=== PATIENT | female | born 1980 | race Caucasian/White ===

== ENCOUNTER 2016-03-21 12:49 | Emergency (ER) | payer MEDICAID ==
--- NOTE | 2016-03-21 13:46 | EDDOCDS ---
Nurse's Notes [facility] Name: Grace Toscano Age: 35 yrs Sex: Female : 1980 Arrival Date: 03/21/2016 Time: 12:49 Bed TR8 Private MD: Jaleesa Cisneros Diagnosis: Aspiration of fluid as the cause of abnormal reaction of the patient, or of later complication, without mention of misadventure at the time of the procedure Presentation: 03/21 12:55 Presenting complaint: Mother states: choked at DPAO on a drink. they did heimlich srm maneuver and didn't breath for a few secs. but now back to normal. Presenting complaint: Mother states: pt is mentally handicapped. Adult Sepsis Screening: The patient does not have new or worsening altered mentation. Patient's respiratory rate is less than 22. Systolic blood pressure is greater than 100. Patient has a qSOFA score of 0- Negative Sepsis Screen. Suicide/Homicide risk assessment- the patient denies having any suicidal and/or homicidal ideations and does not present with any other emotional, behavioral or mental health complaints. Status: Patient is not a service station helper or dependent. Transition of care: patient was not received from another setting of care. 12:55 Acuity: TRPIP Level 3 [facility] [place] 12:55 Method Of Arrival: Walkin/Carried/Asstd [facility] [place] 12:57 Presenting complaint: Mother states: sent here for xray to make sure everything is ok. [facility] [place] Triage Assessment: 12:57 General: Appears in no apparent distress, Behavior is restless. Pain: Unable to use srm pain scale. FLACC scale score is 0 out of 10. HIV screening NA for this visit Offered previously. 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 Valproic Acid 6ml Oral 2 times per day - PMHx: Seizure Disorder; mentally handicapped; legally blind; - PSHx: Cataract Surgery; - Social history: Smoking status: Patient states was never smoker of tobacco. Patient is visually impaired, non verbal. - Family history: Not pertinent. - : The pt / caregiver states he / she is not on anticoagulants. Home medication list is obtained from family members. - Exposure Risk Screening:: None identified. Screenin:42 Screening information is obtained from the patient. Fall risk: No risks identified. cjh Assistance ADL's: requires no assistance with activities of daily living. Abuse/DV Screen: The patient / caregiver reports he/she is: not in a situation that causes fear, pain or injury. Nutritional screening: No deficits noted. Advance Directives: There is no active DNR order. home support is adequate. Assessment: 13:42 General: Appears in no apparent distress, comfortable, Behavior is cooperative, first [facility] contact with patient, mother at bedside and caretaking, denies further needs. Reviewed discharge instructions with mother, encouraged and answered questions, declines offer of further assistance. Vital Signs: 12:51 Pulse 91; Resp 16; Temp 96.9(T); Pulse Ox 100% on R/A; Weight 38.1 kg; Height 4 ft. 8 sew in. (142.24 cm); 13:42 BP 107 / 63; cjh 12:51 Body Mass Index 18.83 (38.10 kg, 142.24 cm) sew 12:51 UNABLE TO OBTAIN A B/P [facility] Vitals: 12:51 Log In Time: March 21, 2016 at 12:50. sew ED Course: 12:50 Patient visited by Priya Julian. sew 12:50 Jaleesa Cisneros is Private Physician. sew 12:50 Patient moved to Waiting sew 12:54 Patient visited by Priya Julian. sew 12:54 Patient visited by Priya Julian. sew 12:54 Patient moved to Pre RCE sew 12:56 Triage Initiated srm 12:58 Patient moved to Triage 3 srm 13:12 [facility] btw 13:13 Nikko Chávez MD is Attending Physician. btw 13:13 Patient visited by Piyush Card PA. btw 13:21 Jaleesa Cisneros is Referral Physician. btw 13:40 Patient moved to TR8 jb5 13:42 The patient / caregiver is instructed regarding the plan of care and ED course. cjh 13:42 No IV's were initiated during this patient's visit. No procedures done that require cjh assistance. Order Results: There are currently no results for this order. Outcome: 13:23 Discharge ordered by Provider. btw 13:42 Discharge Assessment: Patient awake, alert and oriented x 3. No cognitive and/or cjh functional deficits noted. Patient verbalized understanding of disposition instructions. patient administered narcotics - no. The following High Risk Discharge criteria are identified: None. Discharged to home ambulatory, with parent. Condition: good Condition: stable. Discharge instructions given to parents Instructed on discharge instructions, follow up and referral plans. Demonstrated understanding of instructions, Pt was receptive of discharge instructions/ teaching. No special radiology studies were completed. Property :Personal belongings accompany Pt. 13:45 Patient left the ED. [facility] Signatures: Aimee Norman, RN RN Kanwal Sanz, JOSE MANUEL COPY READER jb5 Piyush Card PA PA btw Hafner, Jane, RN RN [facility] Priya Julian Corrections: (The following items were deleted from the chart) 12:54 12:51 Pulse 91bpm; Resp 16bpm; Pulse Ox 100% RA; Temp 96.9F Tympanic; 38.1 kg; Height 4 sew ft. 9 in.; BMI: 18.1; sew 12:58 12:57 Social history Smoking status: Patient states was never smoker of tobacco. No [facility] [place] barriers to communication noted, The patient speaks fluent Slovak, Speaks appropriately for age, srm MTDD
--- NOTE | 2016-03-21 13:46 | EDDOCDS ---
Physician Documentation [facility] Name: Grace Toscano Age: 35 yrs Sex: Female : 1980 Arrival Date: 03/21/2016 Time: 12:49 Bed TR8 Private MD: Jaleesa Cisneros Disposition: 03/21/16 13:23 Discharged to Home/Self Care. Impression: Aspiration of fluid as the cause of abnormal reaction of the patient, or of later complication, without mention of misadventure at the time of the procedure. - Condition is Stable. - Discharge Instructions: Cough, Adult, [id number]. - Medication Reconciliation, Local Pharmacy Hours form. - Follow up: Jaleesa Cisneros; When: Call to arrange an appointment; Reason: Further diagnostic work-up, Recheck today's complaints, Continuance of care. Follow up: Emergency Department; When: As soon as possible; Reason: Fever > 102F, Trouble breathing, Worsening of conditions. - Problem is new. - Symptoms are resolved. Historical: - Allergies: no known allergies; - Home Meds: 1. Valproic Acid 6ml Oral 2 times per day - PMHx: Seizure Disorder; mentally handicapped; legally blind; - PSHx: Cataract Surgery; - Social history: Smoking status: Patient states was never smoker of tobacco. Patient is visually impaired, non verbal. - Family history: Not pertinent. - : The pt / caregiver states he / she is not on anticoagulants. Home medication list is obtained from family members. - Exposure Risk Screening:: None identified. 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 8 in. (142.24 cm); 13:42 BP 107 / 63; [facility] 12:51 Body Mass Index 18.83 (38.10 kg, 142.24 cm) sew 12:51 UNABLE TO OBTAIN A B/P sew MDM: 13:38 Financial registration complete. lg Signatures: Aimee Norman RN RN [facility] Kymberly Valadez, Shine Riojas Piyush Card PA PA btw Hafner, Jane, RN RN [facility] The chart was reviewed and I authenticate all verbal orders and agree with the evaluation and treatment provided.Corrections: (The following items were deleted from the chart) 12:58 12:57 Social history Smoking status: Patient states was never smoker of tobacco. No srm barriers to communication noted, The patient speaks fluent Japanese, Speaks appropriately for age, srm MTDD
--- NOTE | 2016-03-23 14:45 | EDDOCDS ---
Physician Documentation [facility] Name: Grace Toscano Age: 35 yrs Sex: Female : 1980 Arrival Date: 03/21/2016 Time: 12:49 Bed TR8 Private MD: Jaleesa Cisneros Disposition: 03/21/16 13:23 Discharged to Home/Self Care. Impression: Aspiration of fluid as the cause of abnormal reaction of the patient, or of later complication, without mention of misadventure at the time of the procedure. - Condition is Stable. - Discharge Instructions: Cough, Adult, [id number]. - Medication Reconciliation, Local Pharmacy Hours form. - Follow up: Jaleesa Cisneros; When: Call to arrange an appointment; Reason: Further diagnostic work-up, Recheck today's complaints, Continuance of care. Follow up: Emergency Department; When: As soon as possible; Reason: Fever > 102F, Trouble breathing, Worsening of conditions. - Problem is new. - Symptoms are resolved. Historical: - Allergies: no known allergies; - Home Meds: 1. Valproic Acid 6ml Oral 2 times per day - PMHx: Seizure Disorder; mentally handicapped; legally blind; - PSHx: Cataract Surgery; - Social history: Smoking status: Patient states was never smoker of tobacco. Patient is visually impaired, non verbal. - Family history: Not pertinent. - : The pt / caregiver states he / she is not on anticoagulants. Home medication list is obtained from family members. - Exposure Risk Screening:: None identified. IRRIGATOR OVERHEAD: 03/21 13:44 LMP N/A - Irregular menses [facility] Vital Signs: 12:51 Pulse 91; Resp 16; Temp 96.9(T); Pulse Ox 100% on R/A; Weight 38.1 kg / 84 lbs; Height sew 4 ft. 8 in. (142.24 cm); 13:42 BP 107 / 63; [facility] 12:51 Body Mass Index 18.83 (38.10 kg, 142.24 cm) sew 12:51 UNABLE TO OBTAIN A B/P sew MDM: 13:38 Financial registration complete. lg 14:52 T-Sheet-- Draft Copy was scanned into [employer] and attached to record. gb 15:23 [facility] Payment Agreement was scanned into [employer] and attached to record. lg Signatures: Aimee Norman, RN RN srm Ancelmo Rabia, Reg Reg gb Kymberly Valadez, Reg Reg lg Piyush Card PA PA btw Hafner, Jane,RN RN [facility] The chart was reviewed and I authenticate all verbal orders and agree with the evaluation and treatment provided.Corrections: (The following items were deleted from the chart) 12:58 12:57 Social history Smoking status: Patient states was never smoker of tobacco. No srm barriers to communication noted, The patient speaks fluent Bruneian, Speaks appropriately for age, srm Attachments: 14:52 T-Sheet-- Draft Copy gb 15:23 [facility] Payment Agreement lg Chart Complete MTDD
--- NOTE | 2016-03-23 14:46 | EDDOCDS ---
Nurse's Notes [facility] Name: Grace Toscano Age: 35 yrs Sex: Female : 1980 Arrival Date: 03/21/2016 Time: 12:49 Bed TR8 Private MD: Jaleesa Cisneros Diagnosis: Aspiration of fluid as the cause of abnormal reaction of the patient, or of later complication, without mention of misadventure at the time of the procedure Presentation: 03/21 12:55 Presenting complaint: Mother states: choked at DPAO on a drink. they did heimlich srm maneuver and didn't breath for a few secs. but now back to normal. Presenting complaint: Mother states: pt is mentally handicapped. Adult Sepsis Screening: The patient does not have new or worsening altered mentation. Patient's respiratory rate is less than 22. Systolic blood pressure is greater than 100. Patient has a qSOFA score of 0- Negative Sepsis Screen. Suicide/Homicide risk assessment- the patient denies having any suicidal and/or homicidal ideations and does not present with any other emotional, behavioral or mental health complaints. Status: Patient is not a sales representative facility services or dependent. Transition of care: patient was not received from another setting of care. 12:55 Acuity: TRIPP Level 3 [facility] 12:55 Method Of Arrival: Walkin/Carried/Asstd [facility] 12:57 Presenting complaint: Mother states: sent here for xray to make sure everything is ok. [facility] Triage Assessment: 12:57 General: Appears in no apparent distress, Behavior is restless. Pain: Unable to use srm pain scale. FLACC scale score is 0 out of 10. HIV screening NA for this visit Offered previously. 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 Valproic Acid 6ml Oral 2 times per day - PMHx: Seizure Disorder; mentally handicapped; legally blind; - PSHx: Cataract Surgery; - Social history: Smoking status: Patient states was never smoker of tobacco. Patient is visually impaired, non verbal. - Family history: Not pertinent. - : The pt / caregiver states he / she is not on anticoagulants. Home medication list is obtained from family members. - Exposure Risk Screening:: None identified. Screenin:42 Screening information is obtained from the patient. Fall risk: No risks identified. cjh Assistance ADL's: requires no assistance with activities of daily living. Abuse/DV Screen: The patient / caregiver reports he/she is: not in a situation that causes fear, pain or injury. Nutritional screening: No deficits noted. Advance Directives: There is no active DNR order. home support is adequate. Assessment: 13:42 General: Appears in no apparent distress, comfortable, Behavior is cooperative, first [facility] contact with patient, mother at bedside and caretaking, denies further needs. Reviewed discharge instructions with mother, encouraged and answered questions, declines offer of further assistance. Vital Signs: 12:51 Pulse 91; Resp 16; Temp 96.9(T); Pulse Ox 100% on R/A; Weight 38.1 kg; Height 4 ft. 8 sew in. (142.24 cm); 13:42 BP 107 / 63; cjh 12:51 Body Mass Index 18.83 (38.10 kg, 142.24 cm) sew 12:51 UNABLE TO OBTAIN A B/P [facility] Vitals: 12:51 Log In Time: March 21, 2016 at 12:50. sew ED Course: 12:50 Patient visited by Priya Julian. sew 12:50 Jaleesa Cisneros is Private Physician. sew 12:50 Patient moved to Waiting sew 12:54 Patient visited by Priya Julian. sew 12:54 Patient visited by Priya Julian. sew 12:54 Patient moved to Pre RCE sew 12:56 Triage Initiated srm 12:58 Patient moved to Triage 3 srm 13:12 [facility] btw 13:13 Nikko Chávez MD is Attending Physician. btw 13:13 Patient visited by Piyush Card PA. btw 13:21 Jaleesa Cisneros is Referral Physician. btw 13:40 Patient moved to TR8 jb5 13:42 The patient / caregiver is instructed regarding the plan of care and ED course. cj 13:42 No IV's were initiated during this patient's visit. No procedures done that require [facility] assistance. 14:52 T-Sheet-- Draft Copy was scanned into [employer] and attached to record. gb 15:22 Patient name changed from Grace\S\M\S\Everton\S\ to Grace\S\Kaylee\S\Everton. EDMS 15:23 [facility] Payment Agreement was scanned into [employer] and attached to record. lg Order Results: There are currently no results for this order. Outcome: 13:23 Discharge ordered by Provider. btw 13:42 Discharge Assessment: Patient awake, alert and oriented x 3. No cognitive and/or [facility] functional deficits noted. Patient verbalized understanding of disposition instructions. patient administered narcotics - no. The following High Risk Discharge criteria are identified: None. Discharged to home ambulatory, with parent. Condition: good Condition: stable. Discharge instructions given to parents Instructed on discharge instructions, follow up and referral plans. Demonstrated understanding of instructions, Pt was receptive of discharge instructions/ teaching. No special radiology studies were completed. Property :Personal belongings accompany Pt. 13:45 Patient left the ED. [facility] Signatures: Dispatcher [employer] EDMS Aimee Norman, RN RN srm Rabia Ag, Reg Reg gb Kymberly Valadez, Reg Reg lg Kanwal Verma, PILE DRIVING NOZZLEMAN PILE DRIVING NOZZLEMAN jb5 Piyush Card, IVELISSE PA btw Kyara Evans RN RN [facility] Priya Julian Corrections: (The following items were deleted from the chart) 12:54 12:51 Pulse 91bpm; Resp 16bpm; Pulse Ox 100% RA; Temp 96.9F Tympanic; 38.1 kg; Height 4 sew ft. 9 in.; BMI: 18.1; sew 12:58 12:57 Social history Smoking status: Patient states was never smoker of tobacco. No srm barriers to communication noted, The patient speaks fluent Gambian, Speaks appropriately for age, srm Chart Complete MTDD
--- NOTE | 2016-03-23 14:46 | EDDOCDS ---
Physician Documentation [facility] Name: Grace Toscano Age: 35 yrs Sex: Female : 1980 Arrival Date: 03/21/2016 Time: 12:49 Bed TR8 Private MD: Jaleesa Cisneros Disposition: 03/21/16 13:23 Discharged to Home/Self Care. Impression: Aspiration of fluid as the cause of abnormal reaction of the patient, or of later complication, without mention of misadventure at the time of the procedure. - Condition is Stable. - Discharge Instructions: Cough, Adult, [id number]. - Medication Reconciliation, Local Pharmacy Hours form. - Follow up: Jaleesa Cisneros; When: Call to arrange an appointment; Reason: Further diagnostic work-up, Recheck today's complaints, Continuance of care. Follow up: Emergency Department; When: As soon as possible; Reason: Fever > 102F, Trouble breathing, Worsening of conditions. - Problem is new. - Symptoms are resolved. Historical: - Allergies: no known allergies; - Home Meds: 1. Valproic Acid 6ml Oral 2 times per day - PMHx: Seizure Disorder; mentally handicapped; legally blind; - PSHx: Cataract Surgery; - Social history: Smoking status: Patient states was never smoker of tobacco. Patient is visually impaired, non verbal. - Family history: Not pertinent. - : The pt / caregiver states he / she is not on anticoagulants. Home medication list is obtained from family members. - Exposure Risk Screening:: None identified. 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 8 in. (142.24 cm); 13:42 BP 107 / 63; [facility] [place] 12:51 Body Mass Index 18.83 (38.10 kg, 142.24 cm) sew 12:51 UNABLE TO OBTAIN A B/P sew MDM: 13:38 Financial registration complete. lg 14:52 T-Sheet-- Draft Copy was scanned into [employer] and attached to record. gb 15:23 [facility] Payment Agreement was scanned into [employer] and attached to record. lg Signatures: Aimee Norman, RN RN srm Ancelmo Rbaia, Reg Reg gb Kymberly Valadez, Reg Reg lg Piyush Card PA PA btw Hafner, Jane,RN RN [facility] [place] The chart was reviewed and I authenticate all verbal orders and agree with the evaluation and treatment provided.Corrections: (The following items were deleted from the chart) 12:58 12:57 Social history Smoking status: Patient states was never smoker of tobacco. No srm barriers to communication noted, The patient speaks fluent Tanzanian, Speaks appropriately for age, srm Attachments: 14:52 T-Sheet-- Draft Copy gb 15:23 [facility] Payment Agreement lg Chart Complete MTDD
== END 2016-03-21 13:45 | disposition home or self-care (01) ==
LOC: M ED 12:49
DX: S10.15XA Superficial foreign body of throat, initial encounter (principal); Y84.4 Aspiration of fluid as the cause of abnormal reaction of the patient, or of later complication, without mention of misadventure at the time of the procedure; X58.XXXA Exposure to other specified factors, initial encounter; Y92.9 Unspecified place or not applicable; Y93.9 Activity, unspecified; Y99.9 Unspecified external cause status; G40.909 Epilepsy, unspecified, not intractable, without status epilepticus; F79 Unspecified intellectual disabilities; H54.8 Legal blindness, as defined in USA; Z79.899 Other long term (current) drug therapy

== ENCOUNTER 2017-01-13 10:26 | Emergency (ER) | payer MEDICAID ==
[~2017-01-13] VITALS: Ht 139.7 cm; Wt 37.3 kg
[2017-01-13] MEDS ORDERED: VALP250S PO (10:41)
== END 2017-01-13 12:39 | disposition home or self-care (01) ==
LOC: M ED 10:26
DX: S00.83XA Contusion of other part of head, initial encounter (principal); W07.XXXA Fall from chair, initial encounter; Y92.89 Other specified places as the place of occurrence of the external cause; Y93.89 Activity, other specified; Y99.9 Unspecified external cause status

== ENCOUNTER → 2017-02-16 | Outpatient (CLI) | payer MEDICAID ==
[~2017-02-16] MED LIST: VALP250S PO
--- NOTE | 2017-02-16 12:50 | REP ---
RIGHT FOOT COMPLETE: 02/16/2017 CLINICAL HISTORY: Right foot pain. No prior study. FINDINGS. The patient was unable to cooperate with her mother's and the technologist efforts used to obtain a reasonable examination. Metatarsals are without visible fracture or focal lesion. The articulations of the tarsal bones and the MTP joints are unremarkable. IP joints and phalanges are intact. Tarsal bones and articulations intact. Talus and calcaneus are grossly normal. Subtalar joints are intact. No heel spurs. IMPRESSION: 1. Negative right foot series for fracture, avulsion, subluxation or other focal lesion. There are no erosions, foreign bodies or other acute finding. Subtalar joints intact. No heel spurs. Signed by Jonatan Cowart MD 02/17/2017 07:19 P
== END ==
LOC: M LRY 11:02
PROVIDERS: ATTEND Physician Assistant
DX: M79.671 Pain in right foot (principal)

== ENCOUNTER 2017-10-30 13:51 | Emergency (ER) | payer MEDICAID ==
[2017-10-30 15:05] LABS: BASO % 0.4 % (0.0-1.0); EOS # 0.4 10^3/uL (0.0-0.50); EOS % 3.4 % (0.0-3.0); HEMATOCRIT 38.5 % (36.0-47.0); HEMOGLOBIN 12.7 g/dl (12.0-15.5); IMMATURE GRANULOCYTE % 0.3 % (0-3.0); LYMPH # 2.9 10^3/uL (1.5-4.5); LYMPH % 27.1 % (24.0-44.0); MEAN CORPUSCULAR HEMOGLOBIN 29.1 pg (27.0-33.0); MEAN CORPUSCULAR VOLUME 88.3 fl (80.0-96.0); MONO # 0.9 10^3/uL (0.0-0.8); MONO % 8.8 % (0.0-5.0); NEUTROPHILS # 6.4 10^3/uL (1.8-7.7); PLATELET COUNT, AUTOMATED 277 10^3/uL (150-450); RED BLOOD COUNT 4.36 10^6/uL (4.00-5.40); RED CELL DISTRIBUTION WIDTH 13.7 % (11.5-14.5); WHITE BLOOD COUNT 10.7 10^3/uL (4.0-10.0)
[2017-10-30 15:32] LABS: ANION GAP 5 MEQ/L (8-16); BLOOD UREA NITROGEN 8 MG/DL (7-18); CALCIUM LEVEL 8.5 MG/DL (8.5-10.1); CARBON DIOXIDE LEVEL 28 MEQ/L (21-32); CHLORIDE LEVEL 109 MEQ/L (98-107); CREATININE FOR GFR 0.48 MG/DL (0.55-1.30); GLOMERULAR FILTRATION RATE > 60.0 (>60); GLUCOSE, FASTING 86 MG/DL (70-100); POTASSIUM SERUM 4.4 MEQ/L (3.5-5.1); SODIUM LEVEL 142 MEQ/L (136-145); VALPROIC ACID (DEPAKOTE) 62.9 UG/ML (50.0-100.0)
== END 2017-10-30 16:16 | disposition home or self-care (01) ==
LOC: M ED 13:51
DX: R56.9 Unspecified convulsions (principal); S09.90XA Unspecified injury of head, initial encounter; W07.XXXA Fall from chair, initial encounter; Y92.89 Other specified places as the place of occurrence of the external cause; R93.0 Abnormal findings on diagnostic imaging of skull and head, not elsewhere classified; F72 Severe intellectual disabilities; H54.8 Legal blindness, as defined in USA; Z79.899 Other long term (current) drug therapy
CPT/HCPCS: 70450

== ENCOUNTER → 2018-02-11 | Outpatient (CLI) | payer MEDICAID ==
[2018-02-11 11:13] LABS: BASO # 0.1 10^3/uL (0.0-0.2); BASO % 0.7 % (0.0-1.0); EOS # 0.4 10^3/uL (0.0-0.50); EOS % 4.9 % (0.0-3.0); HEMATOCRIT 40.8 % (36.0-47.0); HEMOGLOBIN 13.8 g/dl (12.0-15.5); IMMATURE GRANULOCYTE % 0.2 % (0-3.0); LYMPH # 3.4 10^3/uL (1.5-4.5); LYMPH % 41.7 % (24.0-44.0); MEAN CORPUSCULAR HEMOGLOBIN 29.4 pg (27.0-33.0); MEAN CORPUSCULAR HGB CONC 33.8 g/dl (32.0-36.5); MEAN CORPUSCULAR VOLUME 86.8 fl (80.0-96.0); MONO # 0.7 10^3/uL (0.0-0.8); MONO % 8.4 % (0.0-5.0); NEUTROPHILS # 3.6 10^3/uL (1.8-7.7); NEUTROPHILS % 44.1 % (36.0-66.0); PLATELET COUNT, AUTOMATED 246 10^3/uL (150-450); RED CELL DISTRIBUTION WIDTH 13.2 % (11.5-14.5); WHITE BLOOD COUNT 8.2 10^3/uL (4.0-10.0)
[2018-02-11 11:30] LABS: ESTIMATED AVERAGE GLUCOSE 108 MG/DL (60-110); HEMOGLOBIN A1c 5.4 %
[2018-02-11 11:49] LABS: ALBUMIN 3.9 GM/DL (3.2-5.2); ALBUMIN/GLOBULIN RATIO 1.18 (1.00-1.93); ALKALINE PHOSPHATASE 56 U/L (45-117); ALT/SGPT 23 U/L (12-78); ANION GAP 8 MEQ/L (8-16); AST/SGOT 17 U/L (7-37); BILIRUBIN,TOTAL 0.3 MG/DL (0.2-1.0); BLOOD UREA NITROGEN 12 MG/DL (7-18); CARBON DIOXIDE LEVEL 22 MEQ/L (21-32); CHLORIDE LEVEL 109 MEQ/L (98-107); CHOLESTEROL LEVEL 134 MG/DL (<200); CHOLESTEROL RISK RATIO 2.977 (<5); CREATININE FOR GFR 0.68 MG/DL (0.55-1.30); GLOMERULAR FILTRATION RATE > 60.0 (>60); GLUCOSE, FASTING 86 MG/DL (70-100); HDL CHOLESTEROL 45 MG/DL (>40); LDL CHOLESTEROL 74 MG/DL (<100); NON-HDL-C 89 MG/DL; POTASSIUM SERUM 4.5 MEQ/L (3.5-5.1); SODIUM LEVEL 139 MEQ/L (136-145); TOTAL PROTEIN 7.2 GM/DL (6.4-8.2); TRIGLYCERIDES LEVEL 73 MG/DL (<150); VALPROIC ACID (DEPAKOTE) 73.4 UG/ML (50.0-100.0)
== END ==
LOC: M LAB 10:31
DX: R56.9 Unspecified convulsions (principal); E55.9 Vitamin D deficiency, unspecified; R63.6 Underweight; Z79.899 Other long term (current) drug therapy
CPT/HCPCS: 84443